=== PATIENT | male | born 1985 ===

== ENCOUNTER 2020-10-09 10:05 | Emergency (ER) | payer OTHER ==
[~2020-10-09] VITALS: Ht 172.7 cm; Wt 83.9 kg
[2020-10-09 11:45] LABS: Calcium, Ionized (POC) 1.05 mmol/L (1.10-1.46); Chloride (POC) 99 mmol/L (98-108); Creatinine (POC) 1.2 mg/dL (0.8-1.3); Glucose (ISTAT POC) 92 mg/dL (70-99); Potassium (POC) 3.7 mmol/L (3.5-5.5); Sodium (POC) 137 mmol/L (135-148); Total CO2 (POC) 26 mmol/L (21-32)
== END 2020-10-09 12:52 | disposition home or self-care (01) ==
LOC: ER 10:05
PROVIDERS: Emergency Medicine
DX: M79.10 Myalgia, unspecified site (principal); R51.9 Headache, unspecified
CPT/HCPCS: 36415; 80047; 85014; 96374; 99283-25; A9270; J1885; J7030

== ENCOUNTER 2020-10-12 18:40 | Inpatient (IN) | payer OTHER ==
[~2020-10-12] VITALS: Ht 172.7 cm; Wt 75.8 kg
[2020-10-12 20:54] LABS: BASOPHILS ABSOLUTE AUTO 0.01 K/mm3 (0.00-0.23); BASOPHILS PERCENT AUTO 0 % (0-2); EOSINOPHILS PERCENT AUTO 0 % (0-6); Hematocrit 43.3 % (37.0-53.0); IMMATURE GRAN ABSOLUTE AUTO 0.02 K/mm3 (0.00-0.10); IMMATURE GRAN PERCENT AUTO 0 % (0-1); LYMPHOCYTES ABSOLUTE AUTO 0.37 K/mm3 (0.84-5.20); LYMPHOCYTES PERCENT AUTO 6 % (21-46); MONOCYTES ABSOLUTE AUTO 0.11 K/mm3 (0.16-1.47); MONOCYTES PERCENT AUTO 2 % (4-13); Mean Corpuscular HGB 28.7 pg (26.0-34.0); Mean Corpuscular HGB Conc 34.6 g/dL (31.5-36.5); Mean Corpuscular Volume 83 fL (80-100); NEUTROPHILS ABSOLUTE AUTO 5.34 K/mm3 (1.96-9.15); NEUTROPHILS PERCENT AUTO 91 % (41-73); Platelet Count 180 K/mm3 (150-400); RDW Standard Deviation 36.8 fL (35.1-46.3); Red Blood Cell Count 5.23 M/mm3 (4.30-5.90); White Blood Cell Count 5.85 K/mm3 (4.00-11.30)
[2020-10-12 21:18] LABS: Alanine Aminotransfer (ALT/SGP 181 U/L (12-78); Albumin/Globulin Ratio 0.7 (0.8-1.8); Alk Phos 109 U/L (50-136); Anion Gap 7 mmol/L (6-16); Aspartate Aminotrans (AST/SGOT 196 U/L (12-37); Bilirubin, Total 0.7 mg/dL (0.1-1.0); Blood Urea Nitrogen 10 mg/dL (8-24); CO2, Blood 28 mmol/L (21-32); Calcium, Blood 8.1 mg/dL (8.5-10.1); Chloride, Blood 97 mmol/L (98-108); Creatinine, Blood 1.11 mg/dL (0.60-1.20); Globulin, Blood 4.3 g/dL (2.2-4.0); Glomerular Filtration Rate >60 (60-); Glucose, Blood 109 mg/dL (70-99); Potassium, Blood 3.7 mmol/L (3.5-5.5); Sodium, Blood 132 mmol/L (136-145); Total Protein, Blood 7.3 g/dL (6.4-8.2); Troponin I <0.015 ng/mL (0.000-0.040)
--- NOTE | 2020-10-12 23:07 | NUR ---
RECEIVED REPORT FROM VIVIAN LUGO ED RN. PT ARRIVED TO 361 VIA GURNEY. PT TRANSFERRED SELF TO BED WITHOUT DIFFICULTY. A/O. ON 5L VIA AR. PT ORIENTED TO CALL LT SYSTEM. CALL LT IN REACH. PLACED IN DROPLET ISOLATION FOR PRESENTING WITH COVID 19. C/O HEADACHE AND BACK PAIN FROM COUGHING. WILL MEDICATE PER EMAR. WILL CONTINUE TO PROVIDE CARE THROUGHOUT SHIFT.
--- NOTE | 2020-10-13 00:12 | NUR ---
A/O. ORAL TEMP 103.3, ICE PACKS PLACED, 15 MG TORADOL IV GIVEN, PT AT THIS TIME IS SITTING UP IN BED EATING JELLO AND POPSICLE. CURRENTLY ON 5L VIA GA, 93% 02 SATS. CALL LT IN REACH.
--- NOTE | 2020-10-13 00:44 | NUR ---
PT REPORTS HEADACHE IS MUCH BETTER. TEMP IS NOW 101.0 ORAL. INCREASED OXYGEN TO 6L PER RT RECOMMENDATION TO KEEP 02 SATS AT 94%. RT WILL COME AND GIVE A NEB TREATMENT. NO OTHER NEEDS. CALL LT IN REACH.
--- NOTE | 2020-10-13 04:06 | NUR ---
SHIFT SUMMARY: ER ADMIT AT 2307. A/O AND INDEPENDENT IN RM. CURRENTLY AT 6L VIA HIGH FLOW NC. SATS 95%. MEDICATED ONCE FOR NAUSEA AND PAIN. FEBRILE WITH ORAL TEMPS 100-103. RIGHT NOW TEMP 99.9 ORALLY. BP AND HEART RATE STABLE. OCCASIONAL HARSH COUGH WITHOUT SPUTUM. PT STATES HE'S FEELING PRETTY GOOD. HEADACHE AND BACK PAIN MANAGEABLE WITH THE TORADOL GIVEN. PT RESTED WELL T/O SHIFT. WILL CONTINUE TO MONITOR UNTIL SHIFT REPORT.
[2020-10-13 05:19] LABS: BASOPHILS ABSOLUTE AUTO 0.01 K/mm3 (0.00-0.23); BASOPHILS PERCENT AUTO 0 % (0-2); EOSINOPHILS PERCENT AUTO 0 % (0-6); Hematocrit 42.6 % (37.0-53.0); Hemoglobin 14.7 g/dL (13.5-17.5); IMMATURE GRAN ABSOLUTE AUTO 0.01 K/mm3 (0.00-0.10); IMMATURE GRAN PERCENT AUTO 0 % (0-1); LYMPHOCYTES ABSOLUTE AUTO 0.39 K/mm3 (0.84-5.20); LYMPHOCYTES PERCENT AUTO 8 % (21-46); MONOCYTES ABSOLUTE AUTO 0.13 K/mm3 (0.16-1.47); MONOCYTES PERCENT AUTO 3 % (4-13); Mean Corpuscular HGB 28.4 pg (26.0-34.0); Mean Corpuscular HGB Conc 34.5 g/dL (31.5-36.5); Mean Corpuscular Volume 82 fL (80-100); Mean Platelet Volume 9.5 fL (9.1-12.4); NEUTROPHILS ABSOLUTE AUTO 4.68 K/mm3 (1.96-9.15); NEUTROPHILS PERCENT AUTO 90 % (41-73); Platelet Count 181 K/mm3 (150-400); RDW Standard Deviation 36.6 fL (35.1-46.3); Red Blood Cell Count 5.18 M/mm3 (4.30-5.90); White Blood Cell Count 5.22 K/mm3 (4.00-11.30)
--- NOTE | 2020-10-13 05:23 | NUR ---
PT STATES HE HAS RESTED WELL. DENIES BREATHING DIFFICULTIES AND PAIN. ORAL TEMP IS NOW 97.6, 94% ON 6L VIA HIGH FLOW NC. BLANKET GIVEN. CALL LT IN REACH.
[2020-10-13 05:42] LABS: BASOPHILS PERCENT MAN 0 % (0-2); EOSINOPHILS PERCENT MAN 0 % (0-6)
[2020-10-13 05:45] LABS: BAND PERCENT MAN 1 % (0-8); LYMPHOCYTES ABSOLUTE MAN 0.41 K/mm3 (0.84-5.20); LYMPHOCYTES PERCENT MAN 8 % (21-46); MONOCYTES ABSOLUTE MAN 0.05 K/mm3 (0.16-1.47); MONOCYTES PERCENT MAN 1 % (4-13); NEUTROPHILS ABSOLUTE MAN 4.75 K/mm3 (1.96-9.15); SEG NEUTROPHILS PERCENT MAN 90 % (41-73); TOTAL CELLS COUNTED 100
[2020-10-13 05:48] LABS: Alanine Aminotransfer (ALT/SGP 172 U/L (12-78); Albumin, Blood 2.5 g/dL (3.4-5.0); Albumin/Globulin Ratio 0.6 (0.8-1.8); Alk Phos 98 U/L (50-136); Anion Gap 5 mmol/L (6-16); Aspartate Aminotrans (AST/SGOT 162 U/L (12-37); Bilirubin, Total 0.4 mg/dL (0.1-1.0); Blood Urea Nitrogen 10 mg/dL (8-24); Bun/Creatinine Ratio 8.2 (12.0-20.0); CO2, Blood 29 mmol/L (21-32); Calcium, Blood 8.2 mg/dL (8.5-10.1); Chloride, Blood 99 mmol/L (98-108); Creatinine, Blood 1.22 mg/dL (0.60-1.20); Globulin, Blood 4.1 g/dL (2.2-4.0); Glomerular Filtration Rate >60 (60-); Glucose, Blood 132 mg/dL (70-99); Magnesium, Blood 2.4 mg/dL (1.6-2.4); Potassium, Blood 4.2 mmol/L (3.5-5.5); Sodium, Blood 133 mmol/L (136-145); Total Protein, Blood 6.6 g/dL (6.4-8.2)
--- NOTE | 2020-10-13 15:48 | NUR ---
Patient is lying in bed and alert. Patient tells me about the struggles he has had over the last several yrs and the toll it has taken on his family. He also shares about his [employer] lindsey and what it means to him in difficult times. I listen empathically, recite inspirational scriptures and provide pastoral health counselor and prayer. Patient responds well and shows signs of being encouraged in his lindsey. I will continue to remain available to patient and family.
--- NOTE | 2020-10-13 17:09 | NUR ---
ASSUMED CARE AT 1700. REPORT RECEIVED FROM OUTGOING NURSE. NO DISTRESS NOTED. PATIENT COMPLAINS OF INCREASED COUGHING AND REQUEST MEDICATION. WILL MEDICATE PER EMAR AND REQUEST RT BREATHING TREATMENT. NO FAMILY PRESENT AT BEDSIDE. WILL CONT TO MONITOR.
--- NOTE | 2020-10-13 18:35 | NUR ---
SHIFT SUMMARY NO ACUTE CHANGES SINCE ASSUMING CARE. PATIENT IS CURRENTLY ON 8L HIGH FLOW NC. BASELINE IS ROOM AIR. PAIENT IS ALERT AND ORIENTED, ABLE TO MAKE HIS NEEDS KNOWN. BED LOW AND LOCKED, CALL LIGHT WITHIN REACH. WILL CONT TO MONITOR AND PROVIDE REPORT TO NOC RN.
--- NOTE | 2020-10-13 20:45 | NUR ---
ASSUMED CARE. AOX3. INDEPENDENT IN THE ROOM. LUNG SOUNDS ARE CRACKLES T/O. COUGH IS NON-PRODUCTIVE TODAY, OCCATIONAL. DYSPNEA WITH DROP IN SATS WHEN HE TALKS TO 88% OR WHEN HE GETS UP TO BATHROOM. DOES RECOVER QUICK. GOOD APPETITE. NO CHANGE IN TASTE. FATIQED AT TIMES. NO SKIN ISSUES. VS WNL EXCEPT THE 8 LITERS OF O2 IT TAKES HIM TO STAY ABOVE 90%. NIGHT MEDS GIVEN. REPORTS PAIN IN LOWER BACK TO SIDES, POSSIBLY DUE TO COUGHING HARD. WILL GIVE TORDOL. CALL LIGHT IN REACH.
--- NOTE | 2020-10-13 22:02 | NUR ---
ADMINISTERED TORDOL FOR PAIN. REDESIMER IV IS COMPLETED. SATS STILL HOLDING ON 8 LITERS. HE GOT UP AND USED THE BATHROOM, SOB NOTED, BUT RECOVERED QUICKLY. CALL LIGHT IN REACH.
--- NOTE | 2020-10-14 | NUR ---
PATIENT SLEEPING COMFORTABLY. NO SIGN OF RESPIRTORY DISTRESS. WILL CONTINUE TO MONITOR.
--- NOTE | 2020-10-14 02:08 | NUR ---
SHAWANDA IS SLEEPING. NO SIGN OF RESPIRTORY DISTRESS. WILL CONTINUE TO MONITOR.
--- NOTE | 2020-10-14 07:30 | NUR ---
SHIFT SUMMARY: AOX3, STARTED SHIFT ON 8 LITERS HIGH FLOW. DID WELL AT START OF SHIFT WITH MAINTAINING HIS SATS. LUNG SOUNDS WERE CRACKLES AT START OF SHIFT AND WERE FINE CRACKLES THIS AM THAT WOULD CLEAR WHEN HE COUGHED. HE SLEPT WELL BUT WAS ON HIS SIDE T/O THE NIGHT. WHEN HE GOT UP THIS AM TO THE BATHROOM HE GOT VERY DYSPENIC. STATES "i FEEL LIKE I RAN A MARATHON" SATS WERE DOWN TO THE 70"S AND HE WAS WORKING TO BREATH. CALLED RT, INCREASED TO 10 LITERS, THEN ALL THE WAY TO 15 L. SATS REMAINED IN THE HIGH 80'S. HE SAT STRAIGHT UP WITH PILLOWS BEHIND HIM. VS HAVE REMAINED STABLE. RT ARRIVED DURING SHIFT CHANGE AND PLACED THE PATIENT ON AIRVO 40L 50% OXYGEN BASE WITH SATS IN THE LOW 90'S. REPORT GIVEN TO [facility]. CALL LIGHT IN REACH.
--- NOTE | 2020-10-14 07:53 | NUR ---
ADVISED PATIENT PUT ON AIR VO AT 40 L 50 % AROUND 0630. NOW BUMPED UP TO 45L AND 65%. PER MD TRANSFER TO PCU.
--- NOTE | 2020-10-14 08:20 | NUR ---
REPORT TO SAMIR TEE ICU
--- NOTE | 2020-10-14 08:45 | NUR ---
TRANSFER: PATIENT CAME DOWN FROM 361, REPORT RECIEVED FROM [facility] RN. PT CAME DOWN ON NRB 15L, BIOX 90%. PT WAS SWITCHED TO AIRVO 45L FIO2 65%. PT IS. SOB WITH TRANSFER TO BED. PT HAS OCCASIONAL PC WITH WHITE SPUTUM. PT IS ANXIOUS AND TEARFUL REGARDING TRANSFER. VSS. DISCUSSED THE IMPORTANCE OF PRONING WITH PATIENT, HE IS AGREEABLE BUT STATES," IT WAS UNCOMFORTABLE." PT DENIES ADDITIONAL NEEDS AT THIS TIME, WILL CONTINUE TO MONITOR. CALL LIGHT IN REACH.
[2020-10-14 10:53] LABS: PCO2 Arterial 39.8 mmHg (35-45); PO2 Arterial 76.6 mmHg (80-100); pH Blood Arterial 7.47 (7.35-7.45)
--- NOTE | 2020-10-14 11:00 | NUR ---
PT IS DOING WELL ALL NEW LAB ORDERS COMPLETE. PT ASSISTED TO PRONE AT THIS TIME, OUR GOAL IS TO HAVE HIM PRONE FOR ABOUT AN HOUR. HE DENIES OTHER NEEDS AT THIS TIME. CALL LIGHT IN REACH. WILL CONTINUE TO MONITOR.
[2020-10-14 12:43] LABS: Anion Gap 9 mmol/L (6-16); Blood Urea Nitrogen 19 mg/dL (8-24); Bun/Creatinine Ratio 20.9 (12.0-20.0); CO2, Blood 26 mmol/L (21-32); Calcium, Blood 8.3 mg/dL (8.5-10.1); Chloride, Blood 102 mmol/L (98-108); Creatinine, Blood 0.91 mg/dL (0.60-1.20); Glomerular Filtration Rate >60 (60-); Glucose, Blood 168 mg/dL (70-99); Potassium, Blood 3.9 mmol/L (3.5-5.5); Sodium, Blood 137 mmol/L (136-145)
--- NOTE | 2020-10-14 13:15 | NUR ---
Patient is sitting up in bed after being moved to the ICU. He talks about his fears, his family and the positive friends that surround his life. Patient is emotional at times in talking about the love he has for his spouse and the depth of connection as his friends continue supporting him in this challenging season. Patient just moved back to [place] less than 3wks ago and so he feels like many things are up in the air. I provide therapeutic listening, pastoral breastfeeding peer counselor, companionship and prayer. Patient responds well and shows signs of greater peace. I will continue to remain available to patient and famliy.
--- NOTE | 2020-10-14 14:00 | NUR ---
DR. RICHARDSON IS HERE TO SEE THE PATIENT. PATIENT ASSISTED TO PRONE, DR. RICHARDSON ENCOURAGED PATIENT TO PRONE FOR 4-6 HOUR INCREMENTS IF HE CAN TOLERATE IT. THERE IS A NOTICEABLE INCREASE IN OXYGENATION WTIH PRONING. WHEN PATIENT IS SITTING UP IN BED OXYGEN SATURATIONS ARE 90-91%, WHEN HE IS PRONING SATURATION IS 96-97%. SPOUSE AT BEDSIDE AT THIS TIME. PT DENIES OTHER NEEDS AT THIS TIME. CALL LIGHT IN REACH, WILL CONTINUE TO MONITOR.
--- NOTE | 2020-10-14 17:54 | NUR ---
PATIENT WAS TRANSFERRED DOWN FROM 361 TO ICU1 THIS SHIFT. INITIAL OXYGEN REQUIREMENTS WERE 45L AND 60% FIO2. FIO INCREASED TO 75% AND IS NOW BACK DOWN TO 70%. PATIENT HAS BEEN ABLE TO TOLERATE PRONING FOR 5 HOURS THIS SHIFT. OTHER VSS. PLAN TO TRANSFER PATIENT TO PCU 7 WHEN THE ROOM IS CLEAN.
--- NOTE | 2020-10-14 18:36 | NUR ---
PT WAS ASSISTED TO MOVE FROM PRONING TO SUPINE. ONCE PATIENT WAS SUPINE, HIS OXYGEN SATURATIONS DROPPED DOWN INTO THE MID TO HIGH 80S WTIH THE ARIVO ON. RT CAME INTO THE ROOM AND PLACED THE NRB ON IN ADDITION TO THE ARIVO, THE PATIENT STILL TOOK APPROX 50 MIN TO RECOVER AND OXYGEN SATURATIONS TO RISE ABOVE 90%. THE TRANSFER TO PCU IS CANCELLED, PT WILL STAY IN ICU FOR CLOSER OBSERVATION OVER NIGHT. RT ATTEMPTED TO SEE IF THEY COULD SWITCH AIRVO MACHINES TO SEE IF THE PAIENT WOULD IMPROVE, THIS WAS UNSUCCESSFUL. PT WAS PLACED ON HEATED HIGH FLOW VIA V60, 30L 100% FIO2, PER RT THEY TRIED TO INCREASE THE FLOW AND PATIENT WAS PULLING THE OXYGEN OUT OF HIS NOSE STATING, "ITS TOO MUCH."
[2020-10-15 05:29] LABS: PCO2 Arterial 40.6 mmHg (35-45); PO2 Arterial 110 mmHg (80-100); pH Blood Arterial 7.47 (7.35-7.45)
--- NOTE | 2020-10-15 08:25 | NUR ---
Assumed care of pt at 0700. Bedside report received from Shruthi TEE. Pt A&O x 4. Answers questions. Follows commands. Verbalizes needs. Pleasant and cooperative with care. Pt on high flow, heated, humidifed NC with 45 LPM flow and 100% FiO2. SpO2 90% or greater. Pt in prone positioning. States his back hurts. Assisted pt to place additional pillow under hips to maintain prone positioning. Pt assisted to drink water, tolerated well w/o signs of aspiration. SR per monitor. BP stable. Precedex started due to high O2 requirements. Reportedly, CPAP was trialed during previous shift and pt did not tolerated. Pt agreeable to plan of care.
--- NOTE | 2020-10-15 11:38 | NUR ---
Patient immediately tells me about the challenges he has been facing to be able to breath and the fear this causes. He explains about his sleepless night and how he is hoping for a better outcome today. He states every few minutes, "But I will be okay" as if to remind himself. I, of coarse, provide encouragement about the talent and expertise that surround him to bring the best care and outcomes possible and I also stress that prayers are at work as well. His family and [employer]eterian are pulling for him with prayers and support. I provide a calming presence and prayer. Patient responds well and shows signs of reduced stress and increased hope. I will continue to assist patient on the spiritual/emotional aspect of battling through this virus.
--- NOTE | 2020-10-15 18:45 | NUR ---
SUMMARY Precedex started today and infused for most of the day. FiO2 effectively decreased from 100% to 40%. Remains on 45 LPM flow. SPO2 90% at this time. SR per monitor, rate 80. BP stable. Pt visited with spouse this afternoon. Pt has not voided urine today, but is attempting to use urinal right now. Pt had CT of his chest today. Results reviewed with family. Continued proning encouraged. Pt did not eat meal trays, but his spouse brought him outside food that he snacked on. Encouraged spouse to continue bringing pt food that he likes, since he is on a regular diet. Encouraged to drink ensure shakes. Will continue to closely monitor until care handoff and bedside report with oncoming RN.
--- NOTE | 2020-10-15 18:58 | NUR ---
Pt successfully voided urine
--- NOTE | 2020-10-15 21:12 | NUR ---
ASSUMED CARE REPORT RECEIVED FROM DAVEY TEE. PT RESTING IN BED WATCHING TV, DENIES PAIN AND SOB. AIRVO INCREASED TO 45L/45% (FROM 40%) TO MAINTAIN SPO2 >88%. VSS. PT WITH FREQUENT PRODUCTIVE COUGH, ABLE TO SUCTION SELF. AFEBRILE. EYE DROPS GIVEN FOR RED/ITCHY EYES. WAS AT BEDSIDE, LEFT FOR THE EVENING. PT DECLINED WANTING ANYTHING FROM [facility] [facility], REMOVED FROM ROOM. PRECEDEX CURRENTLY ON STANDBY, DISCUSSED RESTARTING SO PT CAN GET SOME SLEEP TONIGHT. ALSO DISCUSSED PRONING, PT AGREEABLE TO PRECEDEX AND PRONING.
--- NOTE | 2020-10-15 22:21 | NUR ---
UPDATE PT IN PRONE POSITION. FIO2 INCREASED TO 75% FOR REPOSITIONING, SLOWING DECREASED BACK DOWN TO 40%. SPO2 95%. CALL LIGHT, CELLPHONE AND SUCTION WITHIN REACH OF PT. PRECEDEX INCREASED TO 0.4 MCG/KG/HR TO HELP PT RELAX WHILE PRONED.
[2020-10-16 03:17] LABS: PCO2 Arterial 43.5 mmHg (35-45); PO2 Arterial 96.2 mmHg (80-100); pH Blood Arterial 7.44 (7.35-7.45)
[2020-10-16 03:36] LABS: Hematocrit 39.3 % (37.0-53.0); Hemoglobin 13.6 g/dL (13.5-17.5); Mean Corpuscular HGB 28.8 pg (26.0-34.0); Mean Corpuscular HGB Conc 34.6 g/dL (31.5-36.5); Mean Corpuscular Volume 83 fL (80-100); Mean Platelet Volume 9.3 fL (9.1-12.4); Platelet Count 308 K/mm3 (150-400); RDW Coefficient Variation 11.9 % (11.7-14.2); RDW Standard Deviation 36.2 fL (35.1-46.3); Red Blood Cell Count 4.73 M/mm3 (4.30-5.90); White Blood Cell Count 5.71 K/mm3 (4.00-11.30)
[2020-10-16 04:44] LABS: Alanine Aminotransfer (ALT/SGP 142 U/L (12-78); Albumin, Blood 2.4 g/dL (3.4-5.0); Albumin/Globulin Ratio 0.6 (0.8-1.8); Alk Phos 74 U/L (50-136); Anion Gap 8 mmol/L (6-16); Aspartate Aminotrans (AST/SGOT 71 U/L (12-37); Bilirubin, Total 0.4 mg/dL (0.1-1.0); Blood Urea Nitrogen 17 mg/dL (8-24); Bun/Creatinine Ratio 22.8 (12.0-20.0); CO2, Blood 26 mmol/L (21-32); Calcium, Blood 7.9 mg/dL (8.5-10.1); Chloride, Blood 105 mmol/L (98-108); Creatinine, Blood 0.74 mg/dL (0.60-1.20); Globulin, Blood 3.9 g/dL (2.2-4.0); Glomerular Filtration Rate >60 (60-); Glucose, Blood 134 mg/dL (70-99); Sodium, Blood 139 mmol/L (136-145); Total Protein, Blood 6.3 g/dL (6.4-8.2)
[2020-10-16 05:48] LABS: BAND PERCENT MAN 2 % (0-8); BASOPHILS PERCENT MAN 0 % (0-2); EOSINOPHILS PERCENT MAN 0 % (0-6); LYMPHOCYTES % ATYPICAL MANUAL 1 % (0-0); LYMPHOCYTES ABSOLUTE MAN 0.39 K/mm3 (0.84-5.20); LYMPHOCYTES PERCENT MAN 6 % (21-46); MONOCYTES ABSOLUTE MAN 0.34 K/mm3 (0.16-1.47); MONOCYTES PERCENT MAN 6 % (4-13); NEUTROPHILS ABSOLUTE MAN 4.96 K/mm3 (1.96-9.15); SEG NEUTROPHILS PERCENT MAN 85 % (41-73); TOTAL CELLS COUNTED 100
--- NOTE | 2020-10-16 06:20 | NUR ---
SHIFT SUMMARY PT PRONE FOR MAJORITY OF SHIFT, REPOSITIONED SUPINE AT 0615 THIS AM. SPO2 DECLINED WITH REPOSITION, AIRVO CURRENTLY AT 40L 50% FIO2 TO MAINTAIN SPO2 >88%. PT DENIES PAIN. PT PERFORMED ORAL CARE. HR 55, SBP 140. PT STATES THAT HE FEELS IT'S GETTING EASIER TO TAKE DEEP BREATHES. PRECEDEX INFUSING AT 0.2 MCG/KG/HR.
--- NOTE | 2020-10-16 07:15 | NUR ---
Assumed care of pt at 0700. Bedside report received from Tamie TEE. Pt A&O x 4. Answers questions. Follows commands. Verbalizes needs. Pleasant and cooperative with care. Pt on precedex at 0.2 mcg/kg/hr. Plan to turn precedex off this morning. HR ranging from 55-65. BP stable. Pt on high flow, heated, humidified NC with 40 LPM flow and 55% FiO2. SpO2 90% or greater. Bed in lowest position. Call light in reach. Pt denies need at this time.
--- NOTE | 2020-10-16 10:00 | NUR ---
Pt sitting up in chair. Tolerated activity well. Currently receiving 45 LPM and 60% FiO2. SpO2 90% or greater.
--- NOTE | 2020-10-16 19:28 | NUR ---
SUMMARY Pt sat up in chair for majority of day. Right now, pt is on 10 LPM with high flow, humidified NC (not connected to V60) because previous high flow, humidified, heated NC with flow and FiO2 adjustment malfunctioned and delivered dry and cold air, which pt could not tolerate. RT aware. Pt is tolerating new oxygen delivery device. When moving in room, SpO2 drops to 81% but recovers in less than one minute. Pt does not stand or ambulate without staff in the room. Voids into urinal. Did not eat meal trays today, but did eat food that his brought in. Report given to oncoming RNTamie.
--- NOTE | 2020-10-16 19:35 | NUR ---
ASSUMED CARE REPORT RECEIVED FROM DAVEY TEE. PT RESTING COMFORTABLY IN BED, COMPLAINING OF 5/10 HEADACHE PAIN. PRN TYLENOL GIVEN. PT ON HIGH FLOW NC 10L. FREQUENT STRONG PRODUCTIVE COUGH, PT ABLE TO SUCTION SELF. CURRENTLY SALINE LOCKED. PT AGREEABLE TO TRIALING PRONE POSITION THIS EVENING WITHOUT PRECEDEX. PT AFEBRILE, VSS. HR SR 80'S, SBP 120'S, SPO2 89%. CALL LIGHT WITHIN REACH, USED APPROPRIATELY. URINAL AT BEDSIDE.
--- NOTE | 2020-10-17 00:49 | NUR ---
UPDATE PT IN PRONE POSITION, HAVING DIFFICULTY GETTING IN COMFORTABLE POSITION AND HAVING ANXIETY ABOUT BEING PRONED AND NOT ABLE TO SLEEP. PRECEDEX RESTARTED AT 0.2 MCG/KG/HR.
--- NOTE | 2020-10-17 06:42 | NUR ---
SHIFT SUMMARY PT SLEPT FOR MAJORITY OF NIGHT. COMPLAINTS OF MILD HEADACHE PAIN, PRN TYLENOL GIVEN. SPO2 MAINTAINED >92% ON 5L HIGH FLOW NC WHILE PRONED. 10L HFNC WHILE SUPINE. PT CURRENTLY STILL IN PRONE POSITION, PRECEDEX ON STANDBY. LUNG DIMINISHED T/O. PT WITH STRONG PRODUCTIVE COUGH T/O SHIFT. URINAL AT BEDSIDE, NO BM THIS SHIFT.
--- NOTE | 2020-10-17 07:15 | NUR ---
Assumed care of pt at 0700. Report received from Tamie TEE. Pt A&O x 4. Answers questions. Follows commands. Verbalizes needs. Pleasant and cooperative with care. Pt in prone position. Wearing 5 LPM humidified NC. SpO2 90% or greater. Lungs diminished t/o. SR per monitor. Bed in lowest position. Call light in reach. Pt denies need at this time.
--- NOTE | 2020-10-17 09:00 | NUR ---
When pt changed from supine position to prone position. He required V60 high flow therapy. Placed on 40 LPM and 65%.
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
--- NOTE | 2020-10-17 13:00 | NUR ---
Pt ambulated to shower room wearing NRB. Tolerated this activity well. SpO2 90% or greater. Able to shower and ambulate back to room. Placed back on V60 high flow therapy, SpO2 91%.
--- NOTE | 2020-10-17 18:13 | NUR ---
SUMMARY Pt sat up in bed for about 8 hours today. Pt back in bed at this time. Currently on V60 high flow therapy with 30 LPM and 45% FiO2. SPO2 91%. SR per monitor. BP stable. Pt is currently PCU status.
--- NOTE | 2020-10-17 20:36 | NUR ---
ASSUMING PT CARE: PT SITTING UP IN BED, USING PERSONAL LAPTOP. A&O, APPROPRIATELY INTERACTIVE & PLEASANT W/ STAFF. PT EXPRESSES HIS EXCITEMENT TO BE DC HOME & HIS IMPROVEMENT. SPEAKING IN 2-3 WORD SENTENCES & COUGHING FREQUENTLY. MOD AMNT OF WHITE/PINK FROTHY SPUTUM, PT IS ABLE TO SUCTION SELF W/ OUT DIFF. CALL LIGHT W/IN REACH, PT IS ABLE TO MAKE NEEDS KNOWN. WILL CONTINUE TO MONITOR & REPORT APPROPRIATE.
[2020-10-18 03:48] LABS: BASOPHILS ABSOLUTE AUTO 0.01 K/mm3 (0.00-0.23); BASOPHILS PERCENT AUTO 0 % (0-2); EOSINOPHILS ABSOLUTE AUTO 0.08 K/mm3 (0.00-0.68); EOSINOPHILS PERCENT AUTO 1 % (0-6); Hematocrit 38.7 % (37.0-53.0); Hemoglobin 13.1 g/dL (13.5-17.5); IMMATURE GRAN PERCENT AUTO 1 % (0-1); LYMPHOCYTES ABSOLUTE AUTO 1.19 K/mm3 (0.84-5.20); LYMPHOCYTES PERCENT AUTO 15 % (21-46); MONOCYTES ABSOLUTE AUTO 0.61 K/mm3 (0.16-1.47); MONOCYTES PERCENT AUTO 8 % (4-13); Mean Corpuscular HGB 28.5 pg (26.0-34.0); Mean Corpuscular HGB Conc 33.9 g/dL (31.5-36.5); Mean Corpuscular Volume 84 fL (80-100); Mean Platelet Volume 9.4 fL (9.1-12.4); NEUTROPHILS PERCENT AUTO 75 % (41-73); Platelet Count 355 K/mm3 (150-400); RDW Coefficient Variation 12.2 % (11.7-14.2); RDW Standard Deviation 37.2 fL (35.1-46.3); White Blood Cell Count 7.89 K/mm3 (4.00-11.30)
[2020-10-18 04:10] LABS: Alanine Aminotransfer (ALT/SGP 114 U/L (12-78); Albumin, Blood 2.4 g/dL (3.4-5.0); Albumin/Globulin Ratio 0.6 (0.8-1.8); Alk Phos 77 U/L (50-136); Anion Gap 4 mmol/L (6-16); Aspartate Aminotrans (AST/SGOT 39 U/L (12-37); Bilirubin, Total 0.8 mg/dL (0.1-1.0); Blood Urea Nitrogen 19 mg/dL (8-24); Bun/Creatinine Ratio 19.4 (12.0-20.0); CO2, Blood 29 mmol/L (21-32); Calcium, Blood 8.3 mg/dL (8.5-10.1); Chloride, Blood 105 mmol/L (98-108); Creatinine, Blood 0.98 mg/dL (0.60-1.20); Globulin, Blood 3.9 g/dL (2.2-4.0); Glomerular Filtration Rate >60 (60-); Glucose, Blood 108 mg/dL (70-99); Potassium, Blood 4.4 mmol/L (3.5-5.5); Sodium, Blood 138 mmol/L (136-145); Total Protein, Blood 6.3 g/dL (6.4-8.2)
--- NOTE | 2020-10-18 06:45 | NUR ---
SHIFT SUMMARY: PT RESTED VERY WELL LAST NIGHT AFTER TWO PRN DOSES OF PO XANAX. HE WAS ABLE TO SELF-PRONE PARTIALLY BY ALTERNATING SIDE LAYING POSITIONS. NO EPISODES OF HYPOXIA WHILE AT REST. NO ACUTE NEG CHANGES THIS SHIFT. PLAN FOR POSSIBLE TRANSFER TO PCU TODAY.
--- NOTE | 2020-10-18 12:22 | NUR ---
REASSESSMENT PT HAS DONE WELL THIS MORNING ON AIRVO WITH FOLW OF 35L AND FIO 45%. RT HAS ADJUSTED THE RATE AND FLOW A COUPLE TIMES TRYING TO TITRATE DOWN, BUT HASN'T BEEN ABLE TO. PT IS COUGHING UP A SMALL AMT OF PHLEGM AND ALSO COMPLAINS OF A SMALL AMT OF BLOOD IN HIS NOSE. LUNGS ARE DIM. SR. BP STABLE. VOIDING INDEPENDENTLY. NO OTHER CONCERNS AT THIS TIME. CONTINUE TO MONITOR.
--- NOTE | 2020-10-18 18:00 | NUR ---
SHIFT SUMMARY PT HAS REMAINED ON THE AIRVO TODAY BUT WAS ABLE TO BE TITRATED DOWN TO 35% FROM 45%. HIS LUNG SOUNDS ARE DIM BUT HE IS SELF PRONING THROUGHOUT THE DAY AND HE IS COUGHING UP SOME PHLEGM. HE HAS NOT REQUIRED ANY PRN COUGH MEDICINE THIS SHIFT. HE IS SR, BP STABLE. EATING WELL. VOIDING DARK YELLOW URINE. NO OTHER REQUESTS AT THIS TIME. CONTINUING TO MONITOR.
--- NOTE | 2020-10-18 22:25 | NUR ---
PT IS ALERT AND ORIENTED. VITALS ARE STABLE. DENIES CHEST PAIN, HAS SOB WITH ACTIVITY. AIRVO 35/35 WITH SATS ABOVE 90%. REPORTS HEADACHE AND SOME ANXIETY; MEDICATED PER EMAR. USES URINAL IN BED. CALL LIGHT IS WITHIN REACH. WILL CONTINUE TO MONITOR.
--- NOTE | 2020-10-19 04:25 | NUR ---
SHIFT SUMMARY PT IS ALERT AND ORIENTED X4. NO ACUTE CHANGES T/O NIGHT. PT VITLAS ARE STABLE AND ON AIRVO OF 35/35 WITH SATS ABOVE 92%. PT REPOSITIONING SELF IN BED; USING URINAL. PT IS ABLE TO COMMUNICATE ALL NEEDS. RIGHT HAND IV WNL NOT INFUSING. PT REPORTS BAPTISTE, DID NOT GET OUT OF BED . CALL LIGHT IS WITHIN REACH.
--- NOTE | 2020-10-19 10:16 | NUR ---
PT ALERT AND ORIENTED X4. ON AIRVO AT 35L AND 35%. SATING MID 90'S. DENIES CHEST PAIN/PRESSURE. VITAL SIGNS STABLE. TELE SHOWING SINUS WITH HR 60-70'S. BOWEL TONES PRESENT. PPP. DENIES PAIN. PRONING ENCOURAGED. 1 PERSON ASSIST TO BATHROOM TO HELP MANAGE LINES. REGULAR DIET AND TOLERATING WELL. TAKING PILLS WHOLE WITH WATER. CALL LIGHT IN REACH. DENIES NEEDS AT THIS TIME. WILL CONTINUE TO MONITOR.
--- NOTE | 2020-10-19 14:52 | NUR ---
PT REMAINS STABLE. VITAL SIGNS STABLE. DENIES PAIN. COMPLAINS OF NOSE DRYNESS. PER PT REQUEST PROVIDED WITH LUBE AND COTTON SWABS. UP IN RECLINER FOR LUNCH. SOME SOB WITH MOVEMENT. REMAINS ON AIRVO AT 35L AND 35% FIO2. WILL CONTINUE TO MONITOR. DENIES NEEDS AT THIS TIME.
--- NOTE | 2020-10-19 17:42 | NUR ---
SHIFT SUMMARY: NO ACUTE CHANGES. PT REMAINS STABLE. ABLE TO TITRATE DOWN TO 3L HIGH FLOW NASAL CANNULA, SATING 94-96%. MOM IN TO VISIT. PT REPORTS INCREASE IN APPETITE. UP IN RECLINER FOR LUNCH AND DINNER. DENIES PAIN/NEEDS. VITAL SIGNS REMAIN STABLE. WILL CONTINUE TO MONITOR AND REPORT OFF.
--- NOTE | 2020-10-20 05:25 | NUR ---
SHIFT SUMMARY PATIENT IS ALERT AND ORIENTED X4. INDEPENDENT IN THE ROOM. COOPERATIVE WITH CARE AND PRONING. 02 SATS >93% ON 3L VIA NC. LUNGS SOUND DIMINISHED BUT CLEAR. VSS, NO ACUTE CHANGES. PATIENT SLEPT MOST THE NIGHT. CALL LIGHT IN REACH.
--- NOTE | 2020-10-20 07:15 | NUR ---
ASSUMED CARE: PT 3L AT THIS TIME, SELF PRONING. NSR ON TELE. APPEARS TO BE RESTING QUIETLY. NO ACUTE NEEDS AT THIS TIME.
--- NOTE | 2020-10-20 15:42 | NUR ---
Patient is sitting on a chair and alert. Patient talks about his improved condition and his improved emotional/spiritual state. We talk about his family and that they are on their last day of Quarantine. Patient shares about how thankful he is for his lindsey and how it has brought him through the dark places of the Covid virus rodriguez. He also speaks highly of the hospital staff and the wisdom and care has made the difference between going further into the struggle or having a break through. I provide therapeutic listening and prayer. I will continue to remain available to patient and family.
--- NOTE | 2020-10-20 18:28 | NUR ---
SHIFT SUMMARY: PT HAS REMAINED ON 3L O2 VIA NC. AMBULATED INTO SHOWER IN UNIT WITHOUT ANY ISSUES. AMBULATES IN ROOM AND SELF PRONES. NO ACUTE NEEDS OR CONCERNS AT THIS TIME.
--- NOTE | 2020-10-20 19:30 | NUR ---
ASSUMPTION OF CARE RECEIVED REPORT FROM ARABELLA TEE AT 1910, ASSUMED CARE OF PATIENT. PATIENT A/O, SITTING UP IN BED. PLEASANT AND COOPERATIVE. DENIES PAIN, SOB OR OTHER DISCOMFORTS. VITALS STABLE. PROVIDED PATIENT WITH ICE AND POPSICLE REQUESTED. NO OTHER NEEDS AT THIS TIME. PATIENT INDEPENDENT IN ROOM. CALL LIGHT IN REACH.
--- NOTE | 2020-10-21 00:07 | NUR ---
REASSESSMENT PATIENT LAYING ON RIGHT SIDE IN BED WITH EYES CLOSED. O2 IN PLACE AT 3L VIA NC. RESP E/U. NO S/S OF DISTRESS. CALL LIGHT IN REACH.
--- NOTE | 2020-10-21 02:00 | NUR ---
PATIENT LAYING ON BACK, NO ACUTE S/S OF DISTRESS. O2 VIA NC AT 3L REMAINS IN PLACE. CALL LIGHT IN REACH.
[2020-10-21 03:56] LABS: Alanine Aminotransfer (ALT/SGP 80 U/L (12-78); Albumin, Blood 2.3 g/dL (3.4-5.0); Albumin/Globulin Ratio 0.5 (0.8-1.8); Alk Phos 69 U/L (50-136); Anion Gap 2 mmol/L (6-16); Aspartate Aminotrans (AST/SGOT 25 U/L (12-37); Bilirubin, Total 0.6 mg/dL (0.1-1.0); Blood Urea Nitrogen 26 mg/dL (8-24); Bun/Creatinine Ratio 23.9 (12.0-20.0); CO2, Blood 31 mmol/L (21-32); Calcium, Blood 8.8 mg/dL (8.5-10.1); Chloride, Blood 102 mmol/L (98-108); Creatinine, Blood 1.09 mg/dL (0.60-1.20); Globulin, Blood 4.4 g/dL (2.2-4.0); Glomerular Filtration Rate >60 (60-); Glucose, Blood 106 mg/dL (70-99); Potassium, Blood 4.6 mmol/L (3.5-5.5); Sodium, Blood 135 mmol/L (136-145); Total Protein, Blood 6.7 g/dL (6.4-8.2)
--- NOTE | 2020-10-21 04:00 | NUR ---
REASSESSMENT PATIENT AWAKE IN BED, DENIES NEEDS OR DISCOMFORTS. NO ACUTE CHANGES FROM PREVIOUS ASSESSMENT. 3L [address]. CALL LIGHT IN REACH.
--- NOTE | 2020-10-21 06:16 | NUR ---
SHIFT SUMMARY PATIENT WORE 3L O2 VIA NC ALL NIGHT WITH SATS ABOVE 95%. DENIED DISCOMFORTS. REMAINED INDEPENDENT WITH NEEDS AND CARE. CALL LIGHT REMAINS IN REACH. WILL GIVE REPORT TO ONCOMING RN.
--- NOTE | 2020-10-21 07:10 | NUR ---
ASSUMED CARE: PT RESTING QUIETLY AT THIS TIME ON 3L. INDEPENDENT IN ROOM. NO ACUTE NEEDS OR CONCERNS.
[2020-10-21] MEDS ORDERED: Acetaminophen650 M1 PO (13:12)
[2020-10-21] MEDS ORDERED: ALBU90OI6 INH (13:13)
[2020-10-21] MEDS ORDERED: CODEINE-GUAIFE120 M1 PO (13:14)
--- NOTE | 2020-10-21 14:59 | NUR ---
PT GIVEN DC INSTRUCTIONS AND INFORMATION IN ORDER TO ESTABLISH A PCP. PT TO DC ON 1L OXYGEN NEEDED. VERIFIED THAT HOME O2 IS ALREADY AT PT'S RESIDENCE. ESCORTED OUT VIA WHEELCHAIR BY HOSPITAL STAFF. DENIED FURTHER QUESTIONS OR CONCERNS.
== END 2020-10-21 14:30 | disposition home or self-care (01) | DRG 177 ==
LOC: ER 18:40 → ICUE 22:02 → MEDS 22:02 → ICUE 10-14 08:44
PROVIDERS: Internal Medicine; Internal Medicine Pulmonary Disease; Nurse Practitioner Acute Care; Student in an Organized Health Care Education/Training Program; ADMIT Internal Medicine
PROC: 8E0ZXY6 Isolation (ICD-10-PCS; principal; 2020-10-12)
PROC: XW033E5 Introduction of Remdesivir Anti-infective into Peripheral Vein, Percutaneous Approach, New Technology Group 5 (ICD-10-PCS; 2020-10-12)
PROC: 3E0333Z Introduction of Anti-inflammatory into Peripheral Vein, Percutaneous Approach (ICD-10-PCS; 2020-10-12)
DX: U07.1 COVID-19 (principal); J12.82 Pneumonia due to coronavirus disease 2019; J96.01 Acute respiratory failure with hypoxia; E87.1 Hypo-osmolality and hyponatremia; R74.01 Elevation of levels of liver transaminase levels; F41.9 Anxiety disorder, unspecified
CPT/HCPCS: 36415; 36600; 71045; 71260; 80048; 80053; 82728; 82803; 83520; 83605; 83735; 83880; 84145; 84484; 85025; 85379; 85651; 86141; 87040; 87070; 87205; 93005; 93010; 94640; 94660; 94667; 94668; 94760; 94761; 94762; 96365; 96375; 99285-25; A9270; J1100; J1650; J1885; J2405; J7120; Q9967